=== PATIENT | female | born 1940 | race Asian ===

== ENCOUNTER 2023-07-14 16:50 | Inpatient (IN) | payer OTHER ==
[~2023-07-14] VITALS: Ht 157.5 cm; Wt 40.4 kg
[2023-07-14 16:53] VITALS: BP_SYST 150; PULSE 91; RESP 16; TEMP 97.7; O2SAT 96
[2023-07-14] MEDS ORDERED: levETIRAcetam 1,000 MG in NS 90 ML IV ONE (17:00)
[2023-07-14] MEDS ORDERED: NACL 0.9% 1,000 ML IV ONE ×2 (17:00→18:30)
[2023-07-14] MEDS ORDERED: ONDANSETRON HCL 4 MG/2 ML VIAL IVP ONE (17:00)
[2023-07-14 17:55] LABS: BASOPHILS % (AUTO) 0.2 % (0.0-2.0); EOSINOPHILS # (AUTO) 0.2 K/uL (0.0-0.4); EOSINOPHILS % (AUTO) 1.5 % (0.0-4.0); HEMATOCRIT 38.8 % (36-48); HEMOGLOBIN 12.6 g/dL (12.0-16.0); LYMPHOCYTES # (AUTO) 1.5 K/uL (1.0-5.5); LYMPHOCYTES % (AUTO) 13.9 % (20.5-51.5); MEAN CORPUSCULAR HEMOGLOBIN 32 pg (27-31); MEAN CORPUSCULAR HGB CONC 33 % (32-36); MEAN CORPUSCULAR VOLUME 98 fL (79.0-98.0); MONOCYTES # (AUTO) 0.4 K/uL (0.0-1.0); NEUTROPHILS # (AUTO) 8.6 K/uL (1.8-7.7); NEUTROPHILS % (AUTO) 80.4 % (40.0-70.0); PLATELET COUNT (AUTO) 203 K/uL (130-430); RED BLOOD CELL COUNT(AUTO) 3.96 MIL/uL (4.2-6.2); RED CELL DISTRIBUTION WIDTH 13.5 % (9.0-15.0); WHITE BLOOD COUNT (AUTO) 10.7 K/uL (4.8-10.8)
[2023-07-14 18:09] LABS: ALANINE AMINOTRANSFERASE 25 U/L (12-78); ALBUMIN 3.3 g/dL (3.4-4.8); ANION GAP 9 (5-15); ASPARTATE AMINOTRANSFERASE 25 U/L (10-37); BILIRUBIN,DIRECT 0.1 mg/dL (0.0-0.3); CALCIUM 9.9 mg/dL (8.4-11.0); CARBON DIOXIDE 26 mmol/L (23-29); CHLORIDE 106 mmol/L (98-107); CREATININE 0.95 mg/dL (0.55-1.30); GLUCOSE 125 mg/dL (74-106); POTASSIUM 3.6 mmol/L (3.5-5.1); SODIUM SERUM 141 mmol/L (136-145); TOTAL BILIRUBIN 0.4 mg/dL (0.0-1.0); TOTAL PROTEIN, SERUM 7.6 g/dL (6.4-8.3); UREA NITROGEN, BLOOD 42 mg/dL (8-21)
[2023-07-14] MEDS ORDERED: PIPERACILLIN/TAZO 3.375 GM in NS 50 ML IV ONE (18:30)
[2023-07-14] MEDS ORDERED: PIPERACILLIN/TAZOBACTAM 3.375 GM/VIAL (ZOSYN) IV ONE (18:44)
[2023-07-14 18:48] LABS: BILIRUBIN,URINE NEGATIVE (NEGATIVE); COLOR,URINE YELLOW (YELLOW); GLUCOSE,URINE NEGATIVE (NEGATIVE); KETONES,URINE TRACE (NEGATIVE); LEUKOCYTE ESTERASE ,URINE 2+ (NEGATIVE); NITRITE, URINE NEGATIVE (NEGATIVE); PH,URINE 6.5 (5.0-8.0); PROTEIN URINE 2+ (NEGATIVE)
[2023-07-14 18:50] LABS: BLOOD, URINE TRACE (NEGATIVE); CLARITY/URINE HAZY (CLEAR)
[2023-07-14 18:55] LABS: BACTERIA,URINE MODERATE /HPF (None Seen); WBC,URINE 20-50 /HPF (0-3)
[2023-07-14] MEDS ORDERED: LORazepam 2 MG/ML VIAL IVP PRN (19:30)
[2023-07-14] MEDS ORDERED: OMEG-158 PO (19:45)
[2023-07-14] MEDS ORDERED: ACET500P25 PO (19:45)
[2023-07-14] MEDS ORDERED: ERGO800011 PO (19:45)
[2023-07-14] MEDS ORDERED: BIMA2.5D5 OP (19:45)
[2023-07-14] MEDS ORDERED: LISI10TA29 PO (19:45)
[2023-07-14] MEDS ORDERED: LIP40 PO (19:45)
[2023-07-14] MEDS ORDERED: LEVE500T9 PO (19:45)
[2023-07-14] MEDS ORDERED: QUET25TA36 PO (19:45)
[2023-07-14] MEDS ORDERED: ASCO500T20 PO (19:45)
[2023-07-14 21:45] VITALS: BP_SYST 120; PULSE 102; RESP 18; TEMP 98.1
[2023-07-14] MEDS: D5/0.45 NS 1,000 ML IV SCH (23:15)
[2023-07-15] VITALS: BP_SYST 135; PULSE 101; RESP 18; TEMP 99.1; O2SAT 99
[2023-07-15] MEDS: PIPERACILLIN/TAZOBACTAM 2.25 GM/ D5W 50 ML IV SCH ×4 (00:22→06:18)
[2023-07-15] MEDS: D5/0.45 NS 1,000 ML IV SCH ×2 (06:18→16:49)
[2023-07-15] MEDS ORDERED: LORazepam 2 MG/ML VIAL IVP PRN (07:45)
[2023-07-15] MEDS ORDERED: ONDANSETRON HCL 4 MG/2 ML VIAL IVP PRN (07:45)
[2023-07-15] MEDS ORDERED: NALOXONE HCL 0.4 MG/ML AMP (NARCAN) IVP PRN ×2 (07:45)
[2023-07-15] MEDS ORDERED: HYDROcodone/ACETAMIN 5-325 MG TAB (NORCO/ VICODIN) PO PRN ×2 (07:45→08:15)
[2023-07-15] MEDS ORDERED: ACETAMINOPHEN 325 MG TABLET PO PRN ×2 (07:45→08:15)
[2023-07-15 08:00] VITALS: BP_SYST 148; PULSE 93; RESP 18; TEMP 99.1; O2SAT 99
[2023-07-15] MEDS ORDERED: OMEGA PO SCH (09:00)
[2023-07-15] MEDS ORDERED: BIMATOPROST 0.01%, 2.5 ML EYE DROPS OP SCH (09:00)
[2023-07-15] MEDS ORDERED: EPA PO SCH (09:00)
[2023-07-15] MEDS ORDERED: levETIRAcetam 500 MG TABLET PO SCH (09:00)
[2023-07-15] MEDS ORDERED: ERGOCALCIFEROL 8000 UNITS/ML ORAL SOLUTION, 60 ML BOTTLE PO SCH (09:00)
[2023-07-15] MEDS ORDERED: DHA PO SCH (09:00)
[2023-07-15] MEDS ORDERED: FISH OIL PO SCH (09:00)
[2023-07-15] MEDS: OMEGA-3/DHA/EPA/FISH OIL 1 GM CAPSULE PO SCH (09:25)
[2023-07-15] MEDS: ASCORBIC ACID 500 MG TABLET PO SCH (09:25)
[2023-07-15] MEDS: LISINOPRIL 10 MG TABLET (PRINIVIL) PO SCH (09:26)
[2023-07-15] MEDS: QUEtiapine FUMARATE 25 MG TABLET PO SCH (09:26)
[2023-07-15 10:38] VITALS: O2SAT 98
[2023-07-15 12:00] VITALS: BP_SYST 114; PULSE 99; RESP 18; TEMP 100; O2SAT 96
[2023-07-15] MEDS ORDERED: PIPERACILLIN/TAZO 3.375/DEX-IS 50 ML IV SCH ×2 (12:00)
[2023-07-15 16:51] VITALS: BP_SYST 132; PULSE 105; RESP 18; TEMP 99.8; O2SAT 96
[2023-07-15 18:54] LABS: BASOPHILS % (AUTO) 0.1 % (0.0-2.0); EOSINOPHILS # (AUTO) 0.1 K/uL (0.0-0.4); HEMATOCRIT 32.1 % (36-48); HEMOGLOBIN 10.5 g/dL (12.0-16.0); LYMPHOCYTES # (AUTO) 0.9 K/uL (1.0-5.5); MEAN CORPUSCULAR HEMOGLOBIN 32 pg (27-31); MEAN CORPUSCULAR HGB CONC 33 % (32-36); MEAN CORPUSCULAR VOLUME 98 fL (79.0-98.0); MONOCYTES # (AUTO) 0.6 K/uL (0.0-1.0); MONOCYTES % (AUTO) 6.8 % (1.7-9.3); NEUTROPHILS # (AUTO) 6.8 K/uL (1.8-7.7); NEUTROPHILS % (AUTO) 81.1 % (40.0-70.0); PLATELET COUNT (AUTO) 161 K/uL (130-430); RED BLOOD CELL COUNT(AUTO) 3.29 MIL/uL (4.2-6.2); RED CELL DISTRIBUTION WIDTH 13.3 % (9.0-15.0); WHITE BLOOD COUNT (AUTO) 8.4 K/uL (4.8-10.8)
[2023-07-15] MEDS: ATORVASTATIN 20 MG TABLET PO SCH ×2 (20:36→20:45)
[2023-07-15] MEDS: levETIRAcetam 500 MG TABLET PO SCH (20:44)
[2023-07-15] MEDS: LATANOPROST 2.5 ML DROPS (XALATAN) OP SCH (20:46)
[2023-07-15 21:00] VITALS: O2SAT 98
[2023-07-16] VITALS (8 sets, daily range): BP systolic 130–162; PULSE 88–109; RESP 16–20; TEMP 97–99.1; O2SAT 93–98
[2023-07-16] MEDS: D5/0.45 NS 1,000 ML IV SCH ×3 (03:48→22:10)
[2023-07-16 06:21] LABS: BASOPHILS % (AUTO) 0.2 % (0.0-2.0); EOSINOPHILS # (AUTO) 0.1 K/uL (0.0-0.4); EOSINOPHILS % (AUTO) 1.3 % (0.0-4.0); HEMATOCRIT 36.8 % (36-48); HEMOGLOBIN 11.9 g/dL (12.0-16.0); LYMPHOCYTES % (AUTO) 11.6 % (20.5-51.5); MEAN CORPUSCULAR HEMOGLOBIN 32 pg (27-31); MEAN CORPUSCULAR HGB CONC 32 % (32-36); MEAN CORPUSCULAR VOLUME 98 fL (79.0-98.0); MONOCYTES # (AUTO) 0.4 K/uL (0.0-1.0); MONOCYTES % (AUTO) 4.7 % (1.7-9.3); NEUTROPHILS # (AUTO) 6.7 K/uL (1.8-7.7); NEUTROPHILS % (AUTO) 82.2 % (40.0-70.0); PLATELET COUNT (AUTO) 155 K/uL (130-430); RED BLOOD CELL COUNT(AUTO) 3.76 MIL/uL (4.2-6.2); RED CELL DISTRIBUTION WIDTH 13.1 % (9.0-15.0); WHITE BLOOD COUNT (AUTO) 8.2 K/uL (4.8-10.8)
[2023-07-16 06:38] LABS: ANION GAP 11 (5-15); CALCIUM 8.9 mg/dL (8.4-11.0); CARBON DIOXIDE 26 mmol/L (23-29); CHLORIDE 104 mmol/L (98-107); CREATININE 0.51 mg/dL (0.55-1.30); GLUCOSE 112 mg/dL (74-106); POTASSIUM 3.2 mmol/L (3.5-5.1); SODIUM SERUM 141 mmol/L (136-145); UREA NITROGEN, BLOOD 16 mg/dL (8-21)
[2023-07-16] MEDS: QUEtiapine FUMARATE 25 MG TABLET PO SCH (08:05)
[2023-07-16] MEDS: OMEGA-3/DHA/EPA/FISH OIL 1 GM CAPSULE PO SCH (08:05)
[2023-07-16] MEDS: ASCORBIC ACID 500 MG TABLET PO SCH (08:06)
[2023-07-16] MEDS: levETIRAcetam 500 MG TABLET PO SCH ×2 (08:06→22:09)
[2023-07-16] MEDS: LISINOPRIL 10 MG TABLET (PRINIVIL) PO SCH (08:06)
[2023-07-16] MEDS ORDERED: POTASSIUM CHLORIDE 20 MEQ TABLET.ER PO ONE (09:15)
[2023-07-16] MEDS ORDERED: DOCUSATE SODIUM 100 MG CAPSULE PO PRN (10:30)
[2023-07-16] MEDS ORDERED: HYDROCORTISONE ACETATE 1 SUPP (ANUSOL HC) RC ONE (11:15)
[2023-07-16] MEDS: HYDROCORTISONE ACETATE 1 SUPP (ANUSOL HC) RC SCH (21:00)
[2023-07-16] MEDS: LATANOPROST 2.5 ML DROPS (XALATAN) OP SCH (21:00)
[2023-07-16] MEDS: ATORVASTATIN 20 MG TABLET PO SCH (22:09)
[2023-07-17 00:10] VITALS: BP_SYST 138; PULSE 98; RESP 14; TEMP 97; O2SAT 94
[2023-07-17 06:09] LABS: BASOPHILS % (AUTO) 0.2 % (0.0-2.0); EOSINOPHILS # (AUTO) 0.1 K/uL (0.0-0.4); EOSINOPHILS % (AUTO) 1.6 % (0.0-4.0); HEMATOCRIT 37.1 % (36-48); LYMPHOCYTES # (AUTO) 0.9 K/uL (1.0-5.5); LYMPHOCYTES % (AUTO) 11.2 % (20.5-51.5); MEAN CORPUSCULAR HEMOGLOBIN 32 pg (27-31); MEAN CORPUSCULAR HGB CONC 32 % (32-36); MEAN CORPUSCULAR VOLUME 98 fL (79.0-98.0); MONOCYTES # (AUTO) 0.5 K/uL (0.0-1.0); MONOCYTES % (AUTO) 6.4 % (1.7-9.3); NEUTROPHILS # (AUTO) 6.3 K/uL (1.8-7.7); NEUTROPHILS % (AUTO) 80.6 % (40.0-70.0); PLATELET COUNT (AUTO) 137 K/uL (130-430); RED BLOOD CELL COUNT(AUTO) 3.79 MIL/uL (4.2-6.2); RED CELL DISTRIBUTION WIDTH 13.3 % (9.0-15.0); WHITE BLOOD COUNT (AUTO) 7.8 K/uL (4.8-10.8)
[2023-07-17 06:23] LABS: ERYTHROCYTE SEDIMENTATION RATE 14 MM/HR (0-20)
[2023-07-17 06:34] LABS: ALANINE AMINOTRANSFERASE 21 U/L (12-78); ALBUMIN 2.6 g/dL (3.4-4.8); ANION GAP 10 (5-15); ASPARTATE AMINOTRANSFERASE 20 U/L (10-37); CALCIUM 8.8 mg/dL (8.4-11.0); CARBON DIOXIDE 26 mmol/L (23-29); CHLORIDE 105 mmol/L (98-107); CREATININE 0.41 mg/dL (0.55-1.30); GLUCOSE 132 mg/dL (74-106); POTASSIUM 3.6 mmol/L (3.5-5.1); SODIUM SERUM 141 mmol/L (136-145); TOTAL BILIRUBIN 0.5 mg/dL (0.0-1.0); TOTAL PROTEIN, SERUM 6.5 g/dL (6.4-8.3); UREA NITROGEN, BLOOD 10 mg/dL (8-21)
[2023-07-17] MEDS: D5/0.45 NS 1,000 ML IV SCH (07:30)
[2023-07-17 07:40] VITALS: BP_SYST 145; PULSE 70; RESP 16; TEMP 97.8; O2SAT 96
[2023-07-17 08:20] VITALS: O2SAT 96
[2023-07-17] MEDS ORDERED: CIPR250T4 PO (09:37)
[2023-07-17] MEDS ORDERED: ANURH RC (09:37)
[2023-07-17] MEDS ORDERED: DOCU-144 PO (09:37)
[2023-07-17] MEDS: OMEGA-3/DHA/EPA/FISH OIL 1 GM CAPSULE PO SCH (09:57)
[2023-07-17] MEDS: LISINOPRIL 10 MG TABLET (PRINIVIL) PO SCH (09:57)
[2023-07-17] MEDS: QUEtiapine FUMARATE 25 MG TABLET PO SCH (09:58)
[2023-07-17] MEDS: ASCORBIC ACID 500 MG TABLET PO SCH (09:58)
[2023-07-17] MEDS: levETIRAcetam 500 MG TABLET PO SCH (09:58)
[2023-07-17] MEDS: HYDROCORTISONE ACETATE 1 SUPP (ANUSOL HC) RC SCH (10:03)
[2023-07-17 12:31] VITALS: BP_SYST 121; PULSE 88; RESP 16; TEMP 98.1; O2SAT 97
[2023-07-17] MEDS ORDERED: AMIODARONE HCL 200 MG TABLET PO ONE (12:45)
[2023-07-17] MEDS ORDERED: METOPROLOL TARTRATE 25 MG TABLET PO ONE (12:45)
[2023-07-17 12:59] VITALS: BP_SYST 112; PULSE 84; RESP 16; TEMP 97.9; O2SAT 99
[2023-07-17 16:53] VITALS: BP_SYST 151; RESP 17
[2023-07-17] MEDS ORDERED: METOPROLOL TARTRATE 25 MG TABLET PO SCH (21:00)
[2023-07-17] MEDS ORDERED: AMIODARONE HCL 200 MG TABLET PO SCH (21:00)
[2023-07-18] MEDS ORDERED: AMIO200T66 PO (03:04)
[2023-07-18] MEDS ORDERED: METO25TA6 PO (03:04)
== END 2023-07-17 16:42 | disposition home or self-care (01) | DRG 871 ==
LOC: SED 16:50 → EDSEX 16:50 → STU 19:27
PROVIDERS: ADMIT Preventive Medicine Preventive Medicine/Occupational Environmental Medicine; ATTEND Preventive Medicine Preventive Medicine/Occupational Environmental Medicine
PROC: 4A00X4Z Measurement of Central Nervous Electrical Activity, External Approach (ICD-10-PCS; principal; 2023-07-16)
DX: A41.9 Sepsis, unspecified organism (principal); E43 Unspecified severe protein-calorie malnutrition; N39.0 Urinary tract infection, site not specified; E87.20 Acidosis, unspecified; K62.5 Hemorrhage of anus and rectum; E88.09 Other disorders of plasma-protein metabolism, not elsewhere classified; F03.90 Unspecified dementia, unspecified severity, without behavioral disturbance, psychotic disturbance, mood disturbance, and anxiety; G40.909 Epilepsy, unspecified, not intractable, without status epilepticus; E78.5 Hyperlipidemia, unspecified; E55.9 Vitamin D deficiency, unspecified; I10 Essential (primary) hypertension; E87.6 Hypokalemia; E86.0 Dehydration
CPT/HCPCS: 36415; 71045; 80048; 80053; 80076; 81000; 81001; 81015; 82962; 83605; 84484; 85025; 85651-TC; 87040; 87086; 93005; 95816; 96365; 96375; 97110-GP; 97163-GP; 97530-GP; 99285; G0378; J0696; J1953; J2405; J2543; J7060